=== PATIENT | male | born 1965 ===

== ENCOUNTER 2020-08-08 03:05 | Emergency (ER) | payer SELFPAY ==
[~2020-08-08] VITALS: Ht 165.1 cm; Wt 90.9 kg
[2020-08-08 03:07] VITALS: BP 130/67
[2020-08-08] MEDS ORDERED: METF-960 PO (03:15)
== END 2020-08-08 04:33 | disposition left against medical advice (07) ==
LOC: EMS 03:08 → EDBD 03:08 → EMS 04:33
DX: R73.9 Hyperglycemia, unspecified (principal); Z53.21 Procedure and treatment not carried out due to patient leaving prior to being seen by health care provider
CPT/HCPCS: 82962